=== PATIENT | male | born 2000 | race African-American/Black ===

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

== ENCOUNTER → 2023-12-17 10:07 | Outpatient (BNVA) | payer BC, SELFPAY | PROVIDERS: PCP Nurse Practitioner Family; Visit Provider Nurse Practitioner Family | DX: Z13.6 Encounter for screening for cardiovascular disorders (principal); E55.9 Vitamin D deficiency, unspecified; Z79.899 Other long term (current) drug therapy | CPT/HCPCS: 80053; 80061; 81003; 82306; 83036; 84443; 85025 ==

== ENCOUNTER 2024-03-10 13:08 | Outpatient (CLI) | payer BC, SELFPAY ==
[2024-03-12 00:51] LABS: CARDIOLIPIN AB (IGA) <2.0 APL-U/mL; CARDIOLIPIN AB (IGG) <2.0 GPL-U/mL; CARDIOLIPIN AB (IGM) <2.0 MPL-U/mL
== END 2024-03-10 13:09 | disposition home or self-care (01) ==
PROVIDERS: PCP Nurse Practitioner Family; Visit Provider Nurse Practitioner Family
DX: D48.5 Neoplasm of uncertain behavior of skin (principal); I82.91 Chronic embolism and thrombosis of unspecified vein; R53.1 Weakness; R51.9 Headache, unspecified
CPT/HCPCS: 36415; 85303; 85306; 85610; 85730; 86147